=== PATIENT | female | born 1935 | race Caucasian/White ===

== ENCOUNTER 2017-10-19 17:32 | Inpatient (IN) | payer MEDICARE ==
[~2017-10-19] VITALS: Ht 165.1 cm; Wt 106.1 kg
[2017-10-19 17:37] VITALS: BP 145/89
[2017-10-19] MEDS ORDERED: ASPIR 8181 MG PO (17:44)
[2017-10-19] MEDS ORDERED: PREDNISONE 10 M10 MG PO (17:44)
[2017-10-19] MEDS ORDERED: MOBIC7.5 MG PO (17:44)
[2017-10-19] MEDS ORDERED: ANTIVERT25 MG PO (17:44)
[2017-10-19] MEDS ORDERED: MULTI COMPLETE1 EAC1 PO (17:45)
[2017-10-19] MEDS ORDERED: TRAZODONE HCL50 MG PO (17:45)
[2017-10-19] MEDS ORDERED: VENTOLIN HFA 1818 GM INH (17:45)
[2017-10-19] MEDS ORDERED: ZYRTEC 10 MG TA10 MG PO (17:45)
[2017-10-19] MEDS ORDERED: HYDROPHOR454 GM TOP (17:46)
[2017-10-19] MEDS ORDERED: LASIX 40 MG TAB40 M2 PO (17:46)
[2017-10-19] MEDS ORDERED: FLONASE 0.05%50 MCG NASAL (17:46)
[2017-10-19] MEDS ORDERED: NEURONTIN 300300 M1 PO (17:46)
[2017-10-19] MEDS ORDERED: SYNTHROID150 MCG PO (17:47)
[2017-10-19] MEDS ORDERED: OLOPATADINE HC2.5 ML OPHTHALMIC (17:47)
[2017-10-19] MEDS ORDERED: ZOCOR40 MG PO (17:47)
[2017-10-19] MEDS ORDERED: ALLOPURINOL 10100 M1 PO (17:48)
[2017-10-19] MEDS ORDERED: RED YEAST RICE600 MG PO (17:48)
[2017-10-19] MEDS ORDERED: FLOVENT HFA 4444 MCG INH (17:48)
[2017-10-19] MEDS ORDERED: PERCOCET PO (17:48)
[2017-10-19] MEDS ORDERED: ARIMIDEX1 MG PO (17:49)
[2017-10-19 18:04] LABS: ABSOLUTE BASOPHILS 0.1 thou/uL (0.0-0.2); ABSOLUTE EOSINOPHILS 0.1 thou/uL (0.0-0.7); ABSOLUTE LYMPHOCYTES 1.5 thou/uL (0.8-5.3); ABSOLUTE MONOCYTES 0.9 thou/uL (0.0-1.2); ABSOLUTE NEUTROPHILS 6.8 thou/uL (1.6-8.1); BASOPHILS 0.6 %; EOSINOPHILS 1.1 %; HEMATOCRIT 39.1 % (37.0-47.0); MCH 31.8 pg (26.0-34.0); MCHC 33.4 g/dL (28.0-37.0); MCV 95.2 fL (80.0-100.0); MONOCYTES 9.3 %; MPV 8.8 fl. (7.2-11.1); NUCLEATED RBCS 0 /100WBC; PLATELET COUNT* 176 thou/uL (150-400); RBC 4.11 mil/uL (4.20-5.00); RDW-CV 15.1 % (10.5-14.5); WBC 9.3 thou/uL (4.0-11.0)
[2017-10-19 18:13] LABS: ANION GAP 8 mmol/L (7-16); BUN 32 mg/dL (7-18); CALCIUM 8.5 mg/dL (8.5-10.1); CHLORIDE 104 mmol/L (98-107); CO2 30 mmol/L (21-32); GLUCOSE 113 mg/dL (70-99); POTASSIUM 3.9 mmol/L (3.5-5.1); SODIUM 142 mmol/L (136-145)
[2017-10-19 18:16] LABS: APTT 25.1 Seconds (25.0-31.3); INR 1.1; PROTIME 10.6 Seconds (9.20-11.50)
[2017-10-19 18:24] LABS: ALBUMIN 3.6 g/dL (3.4-5.0); ALKALINE PHOSPHATASE 80 U/L (46-116); NT-PRO BRAIN NAT PEPTIDE 2358 pg/mL (<300); SGOT 28 U/L (15-37); SGPT 59 U/L (30-65); TOTAL BILIRUBIN 0.3 mg/dL (<0.1-1.0); TOTAL PROTEIN 6.8 g/dL (6.4-8.2); TROPONIN-I LEVEL <0.06 ng/mL (<0.06)
[2017-10-19 20:21] VITALS: BP 134/72
[2017-10-19 20:30] VITALS: BP 146/92
[2017-10-20] VITALS (16 sets, daily range): BP systolic 100–150; BP diastolic 56–93
[2017-10-20 05:14] LABS: ABSOLUTE EOSINOPHILS 0.1 thou/uL (0.0-0.7); ABSOLUTE LYMPHOCYTES 1.3 thou/uL (0.8-5.3); ABSOLUTE MONOCYTES 0.5 thou/uL (0.0-1.2); ABSOLUTE NEUTROPHILS 4.6 thou/uL (1.6-8.1); BASOPHILS 0.4 %; EOSINOPHILS 0.8 %; HEMATOCRIT 34.5 % (37.0-47.0); HEMOGLOBIN 11.8 gm/dL (12.0-15.0); LYMPHOCYTES 20.1 %; MCH 32.1 pg (26.0-34.0); MCV 94.3 fL (80.0-100.0); MONOCYTES 7.7 %; MPV 9.1 fl. (7.2-11.1); NUCLEATED RBCS 0 /100WBC; PLATELET COUNT* 158 thou/uL (150-400); RBC 3.66 mil/uL (4.20-5.00); RDW-CV 15.4 % (10.5-14.5); WBC 6.5 thou/uL (4.0-11.0)
[2017-10-20 05:37] LABS: CALCIUM 7.8 mg/dL (8.5-10.1); CREATININE 0.9 mg/dL (0.6-1.3)
--- NOTE | 2017-10-20 15:25 | EKG ---
[place] [address] ELECTROCARDIOGRAM REPORT Name: MIKE BEST Room: [address] ADM IN .R.#: [id number] Admission: 10/19/17 Attend Phys: Donny Tripathi MD Discharge: Date of : 39 Report #: [id number] THIS REPORT FOR: //name// [facility] ED Test Date: 2017-10-19 Test Time: 17:47:28 Pat Name: MIKE BEST Department: Room: [facility] Gender: F Diesel Roller Operator: UNKNOWN : 1935 Requested By: yKlie Deal Order Number: [id number] MD: Josue Mccormick Measurements Intervals [place] Rate: 133 P: [place]: QRS: 14 QRSD: 88 T: -39 QT: 335 QTc: 499 Interpretive Statements Atrial fibrillation Repolarization abnormality, prob rate related Borderline prolonged QT interval No previous ECG available for comparison Electronically Signed On 10-20-2017 15:24:49 FARM MANAGEMENT AGENT by Josue Mccormick [email or web address] <ELECTRONICALLY SIGNED> By: Josue Mccormick MD, [facility] 10/20/17 1524 1747 174 Josue Mccormick MD, [facility] /EPI
--- NOTE | 2017-10-20 16:26 | TEE ---
[place] [address] TRANSESOPHAGEAL ECHOCARDIOGRAM Name: MIKE BEST Room: [address] IN [facility]#: [id number] Admission: 10/19/17 Attend Phys: Donny Tripathi, Discharge: Date of : 39 Date of Service: 10/20/17 1625 Report #: [id number] THIS REPORT FOR: //name// APPROVED REPORT Study performed: 10/20/2017 14:43:53 EXAM: Transesophageal Echocardiogram Patient Location: In-Patient Room #: [facility] Status: routine BSA: 2.13 HR: 118 bpm BP: 123/87 mmHg Rhythm: Atrial Fibrillation Other Information Study Quality: Good Indications Atrial Fibrillation Procedure After obtaining informed consent, patient underwent transesophageal echo in the [employer]. Type of Sedation : Conscious Sedation Sedation was administered by Luz Rainey. Sedation start time: 1542 Case end Time: 1550 Sedation was achieved intravenously with: Versed (4) Fentanyl (100) Transesophageal probe was inserted and advanced into esophagus without difficulty by Josue Mccormick MD, [facility]. The AMARIS was performed without complications. Synchronized Cardioversion acheived with 200 Joules after 1 attempt(s). Rhythm following Synchronized Cardioversion: Normal Sinus Rhythm Throughout the procedure, the blood pressure, pulse oximetry, cardiac rhythm, and rate were monitored. The patient tolerated the procedure without adverse effects. Recovery from conscious sedation was uneventful and vital signs were stable. Left Ventricle The left ventricle is normal size. There is global hypokinesis of the left ventricle. There is normal left ventricular wall thickness. [address] [address] TRANSESOPHAGEAL ECHOCARDIOGRAM Name: MIKE BEST Room: [address] IN [facility]#: [id number] Admission: 10/19/17 Attend Phys: Donny Tripathi, Discharge: Date of : 39 Date of Service: 10/20/17 1625 Report #: [id number] There is no ventricular septal defect visualized. Left ventricular systolic function is mildly decreased. No left ventricle thrombus noted on this study. LVEF is 45-50%. Right Ventricle The right ventricle is normal size. The right ventricular systolic function is normal. Atria Left atrium is mildly dilated. The right atrium size is normal. There is a mild amount of smoke, the left atrial appendage is free of thrombus Aortic Valve The aortic valve is normal in structure. No aortic regurgitation is present. Mitral Valve The mitral valve is normal in structure. Mild mitral regurgitation. Tricuspid Valve The tricuspid valve is normal in structure. Mild tricuspid regurgitation. Great Vessels The aortic root is normal in size. <Conclusion> LVEF is 45-50%. There is global hypokinesis of the left ventricle. Left atrium is mildly dilated. No thrombus <ELECTRONICALLY SIGNED> By: Josue Mccormick MD, FACC 10/20/17 1625 1625 162 Josue Mccormick MD, FACC /INF
[2017-10-21] VITALS (7 sets, daily range): BP systolic 113–145; BP diastolic 52–84
[2017-10-21 05:11] LABS: ABSOLUTE EOSINOPHILS 0.2 thou/uL (0.0-0.7); ABSOLUTE LYMPHOCYTES 1.4 thou/uL (0.8-5.3); ABSOLUTE MONOCYTES 0.5 thou/uL (0.0-1.2); BASOPHILS 0.6 %; EOSINOPHILS 3.3 %; HEMATOCRIT 33.6 % (37.0-47.0); HEMOGLOBIN 11.4 gm/dL (12.0-15.0); LYMPHOCYTES 27.7 %; MCHC 33.8 g/dL (28.0-37.0); MCV 94.5 fL (80.0-100.0); MONOCYTES 10.3 %; MPV 8.9 fl. (7.2-11.1); NUCLEATED RBCS 0 /100WBC; PLATELET COUNT* 147 thou/uL (150-400); POLYS 58.1 %; RBC 3.55 mil/uL (4.20-5.00); WBC 5.1 thou/uL (4.0-11.0)
[2017-10-21 05:44] LABS: ALBUMIN 3.1 g/dL (3.4-5.0); CALCIUM 7.8 mg/dL (8.5-10.1); CREATININE 0.8 mg/dL (0.6-1.3); POTASSIUM 3.7 mmol/L (3.5-5.1); TOTAL BILIRUBIN 0.4 mg/dL (<0.1-1.0); TOTAL PROTEIN 5.9 g/dL (6.4-8.2)
--- NOTE | 2017-10-21 14:36 | EKG ---
[place] [address] ELECTROCARDIOGRAM REPORT Name: MIKE BEST Room: [address] ADM IN M.R.#: [id number] Admission: 10/19/17 Attend Phys: Donny Tripathi MD Discharge: Date of : 39 Report #: [id number] THIS REPORT FOR: //name// [facility] Test Date: 2017-10-20 Test Time: 15:16:17 Pat Name: MIKE BEST Department: Room: [address] Gender: F Digital Forensic Examiner: 27 : 1935 Requested By: Josue Mccormick Order Number: [id number] Reading MD: Josue Mccormick Measurements Intervals [place] Rate: 99 P: 63 MO: 221 QRS: 6 QRSD: 90 T: -2 QT: 363 QTc: 466 Interpretive Statements Sinus tachycardia Multiple ventricular premature complexes Borderline prolonged [place] interval Borderline T abnormalities, inferior leads Compared to ECG 10/19/2017 17:47:28 Ventricular premature complex(es) now present T-wave abnormality now present Atrial fibrillation no longer present Early repolarization no longer present Electronically Signed On 10-21-2017 14:36:03 HAM SAWYER by Josue Mccormick [email or web address] <ELECTRONICALLY SIGNED> By: Josue Mccormick MD, FACC 10/21/17 1436 1516 1516 Josue Mccormick MD, FAC /EPI
--- NOTE | 2017-10-21 14:39 | EKG ---
[place] [address] ELECTROCARDIOGRAM REPORT Name: MIKE BEST Room: [address] ADM IN M.R.#: [id number] Admission: 10/19/17 Attend Phys: Donny Tripathi MD Discharge: Date of : 39 Report #: [id number] THIS REPORT FOR: //name// [facility] Test Date: 2017-10-21 Test Time: 08:23:01 Pat Name: MIKE BEST Department: Room: [address] Gender: F Service Desk Analyst: 27 : 1935 Requested By: Josue Mccormick Order Number: [id number] Reading MD: Josue Mccormick Measurements Intervals [place] Rate: 60 P: 23 SD: 252 QRS: 12 QRSD: 100 T: 6 QT: 484 QTc: 484 Interpretive Statements Sinus rhythm Prolonged SD interval Compared to ECG 10/19/2017 17:47:28 First degree AV block now present Atrial fibrillation no longer present Early repolarization no longer present Electronically Signed On 10-21-2017 14:39:16 EXTRUSION DIE COORDINATOR by Josue Mccormick [email or web address] <ELECTRONICALLY SIGNED> By: Josue Mccormick MD, [facility] 10/21/17 1439 0823 0823 Josue Mccormick MD, [facility] /EPI
[2017-10-21] MEDS ORDERED: XARELTO10 MG PO (16:55)
[2017-10-21] MEDS ORDERED: FLECAINIDE ACET50 M1 PO (16:56)
[2017-10-21] MEDS ORDERED: POTASSIUM20 PO (17:15)
--- NOTE | 2017-10-24 09:45 | CON ---
[address] [address] CONSULTATION Name: MIKE BEST Room: [address] IN M.R.#: [id number] Admission: 10/19/17 Attend Phys: Donny Tripathi MD Discharge: 10/21/17 Date of : 39 Report #: [id number] THIS REPORT FOR: //name// CC: Donny Tripathi [facility] physician/PCP DATE OF SERVICE: 10/20/2017 INPATIENT CONSULTATION REQUESTING PHYSICIAN: Donny Tripathi M.D. PRIMARY CARE PHYSICIAN: No family physician. CHIEF COMPLAINT: Shortness of breath, atrial fibrillation. HISTORY OF PRESENT ILLNESS: The patient is an 82-year-old female who was at radiation therapy locally for treatment of her left-sided breast cancer and she developed shortness of breath, had an irregular pulse and was sent to a clinic in [place] and then she was found to be in atrial fibrillation and transferred here. She presents with heart rates in the 120s, with dyspnea associated. With medications to slow down her atrial fibrillation, her symptoms of shortness of breath have improved. She presented also with some mild heart failure and was given diuretics and has improved. She has minimal symptoms of palpitations. The onset of these symptoms has been recent within the last 48-72 hours. She denies exertional chest pain or pressure, but has mild chronic dyspnea with exertion. She attributed this to her radiation therapy, but otherwise was not known. She has no documented history of heart disease. She does not have high blood pressure. She has no history of stroke or TIA. Denies any neuro symptoms, slurred speech, numbness or weakness. PAST MEDICAL HISTORY: Significant for breast cancer, status post mastectomy with reconstruction at [facility] and radiation therapy. She has completed 6 doses and has not been on chemotherapy, and it is not known as to whether or not this will be required. Otherwise, no chronic medical problems. There is a questionable history of a TIA; details of this are not available and it is very remote, several years ago. SOCIAL HISTORY: She is a former smoker, quit 30 years ago. PAST SURGICAL HISTORY: The aforementioned breast cancer surgery[place] [address] CONSULTATION Name: MIKE BEST Room: [address]#: [id number] Admission: 10/19/17 Attend Phys: Donny Tripathi MD Discharge: 10/21/17 Date of : 39 Report #: [id number] cholecystectomy, appendectomy, 4 hernia surgeries, bilateral knee replacement and shoulder surgeries. REVIEW OF SYSTEMS: CENTRAL NERVOUS SYSTEM: No recent seizures or paralysis. No numbness, weakness, slurred speech or visual changes. No extremity numbness. GENERAL: No weight loss or fevers. RESPIRATORY: No cough or sputum production. Positive dyspnea. No asthma. CARDIOVASCULAR: Positive dyspnea with exertion. No orthopnea, no PND. Positive childhood murmur. Positive edema. ENDOCRINE: No diabetes. Positive thyroid disease. GASTROINTESTINAL: No vomiting, vomiting blood, ulcers, jaundice or hepatitis. MUSCULOSKELETAL: Denies recent fall. Positive arthritis. GENITOURINARY: No dysuria or hematuria. ALLERGIES: No seasonal allergies. Positive medical allergies. No aspirin or contrast dye allergies. PSYCHIATRIC: Positive depression. SKIN: No rashes. EYES: She does use reading glasses. EARS, NOSE, THROAT AND MOUTH: No decreased hearing or bleeding from nose. Positive dentures. HOME MEDICATIONS: Include aspirin 81 mg daily, Zyrtec p.r.n., Lasix 40 mg daily, gabapentin 300 mg t.i.d., Synthroid 150 mcg daily, meclizine p.r.n., meloxicam p.r.n., oxycodone p.r.n., prednisone 10 mg daily, Arimidex 1 mg daily and allopurinol p.r.n. PHYSICAL EXAMINATION: VITAL SIGNS: Blood pressure is 132/83; heart rate of 88, in atrial fibrillation; temperature is 37.1 and respiratory rate is 17. GENERAL: This is a pleasant, moderately obese elderly female. She is alert, oriented, in no apparent distress. NECK: Supple. No jugular venous distention. CARDIOVASCULAR EXAMINATION: Irregular. I cannot hear a murmur. LUNGS: Clear to auscultation, diminished breath sounds. ABDOMEN: Soft, nontender and nondistended. EXTREMITIES: No peripheral edema. NEUROLOGIC: No focal deficits. SKIN: Warm and dry. LABORATORY DATA: Electrocardiogram demonstrates atrial fibrillation with a rate of 133 beats per minute. No significant ST-segment abnormalities. Hemoglobin is 11.8, white blood cell count is 6.5 and platelet counts are 158,000. Sodium 144, potassium 4.0, chloride 108, CO2 is 28, BUN is 24 and creatinine is 0.9. IMAGING: CTA of the head, no evidence of intracranial [place] [address] CONSULTATION Name: MIKE BEST Room: [facility] IN M.R.#: [id number] Admission: 10/19/17 Attend Phys: Donny Tripathi MD Discharge: 10/21/17 Date of : 39 Report #: [id number] chest demonstrated no pulmonary emboli. IMPRESSION: 1. Paroxysmal atrial fibrillation. She is quite symptomatic. We discussed different treatment options and given the chronicity of her presentation, I think she would benefit from a AMARIS-guided cardioversion. I would like to start her on flecainide and Pradaxa in anticipation of the procedure. We will assess LV function. 2. Shortness of breath. This could be related to mild congestive heart failure which has responded to diuretics, but she also has some coronary artery disease, risk factors including age, hyperlipidemia and we will evaluate her with an outpatient stress test. 3. Acute diastolic heart failure. This has responded nicely to diuretic therapy. 4. Breast cancer. I do not see any contraindication to her continuing with radiation therapy. <ELECTRONICALLY SIGNED> By: Josue Mccormick MD, FACC 10/24/17 0945 1015 [id number] Mccormick MD, FACC /nt
--- NOTE | 2017-10-24 09:46 | CARD ---
[address] [address] CARDIAC CATH REPORT Name: MIKE BEST Room: [address] IN .R.#: [id number] Admission: 10/19/17 Attend Phys: Donny Tripathi MD Discharge: 10/21/17 Date of : 39 Report #: [id number] THIS REPORT FOR: //name// CC: Donny Tripathi [facility] physician/PCP DATE OF SERVICE: 10/20/2017 PROCEDURES PERFORMED: Transesophageal echocardiogram, DC cardioversion. INDICATION: Atrial fibrillation, shortness of breath. CONSENT: The risks and benefits of the procedure described to patient in lay terms. DESCRIPTION OF PROCEDURE: The patient was sedated with IV fentanyl and Versed. Please see record for dosing. Heart rate, oxygenation, blood pressure and respiratory rate were monitored per protocol. After the informed consent, a lubricated transesophageal probe was advanced without significant resistance. Transesophageal echocardiographic images were obtained. The echo probe was removed, which was nonbloody. The sedation was reassessed and the patient was cardioverted with 200 joules, biphasic, from atrial fibrillation to sinus rhythm with frequent PACs with heart rate in the 70s-90s. IMPRESSION: 1. Successful DC cardioversion. 2. Atrial fibrillation. <ELECTRONICALLY SIGNED> By: Josue Mccormick MD, [facility] 10/24/17 0946 1535 2214Marjos Mccormick MD, URIAH /nt
== END 2017-10-21 18:00 | disposition home or self-care (01) | DRG 177 ==
LOC: M.ERS 17:32 → M.2W 18:52 → M.TBA-ER 18:52 → M.2W 21:13
PROVIDERS: Personal Emergency Response Attendant; ADMIT Internal Medicine
PROC: 5A2204Z Restoration of Cardiac Rhythm, Single (ICD-10-PCS; principal; 2017-10-20)
PROC: B24BZZ4 Ultrasonography of Heart with Aorta, Transesophageal (ICD-10-PCS; principal; 2017-10-20)
DX: J15.6 Pneumonia due to other Gram-negative bacteria (principal); I50.31 Acute diastolic (congestive) heart failure; I48.0 Paroxysmal atrial fibrillation; C50.919 Malignant neoplasm of unspecified site of unspecified female breast; Z96.653 Presence of artificial knee joint, bilateral; I25.10 Atherosclerotic heart disease of native coronary artery without angina pectoris; K59.00 Constipation, unspecified; M19.90 Unspecified osteoarthritis, unspecified site; M10.9 Gout, unspecified; Z88.8 Allergy status to other drugs, medicaments and biological substances; Z88.6 Allergy status to analgesic agent; Z91.040 Latex allergy status; Z90.12 Acquired absence of left breast and nipple; Z87.891 Personal history of nicotine dependence; Z90.49 Acquired absence of other specified parts of digestive tract

== ENCOUNTER 2017-10-23 05:38 | Emergency (ER) | payer MEDICARE ==
[~2017-10-23] VITALS: Ht 165.1 cm; Wt 115.7 kg
[~2017-10-23 05:38] MED LIST: ALLOPURINOL 10100 M1 PO; ANTIVERT25 MG PO; ARIMIDEX1 MG PO; ASPIR 8181 MG PO; FLECAINIDE ACET50 M1 PO; FLONASE 0.05%50 MCG NASAL; FLOVENT HFA 4444 MCG INH; HYDROPHOR454 GM TOP; LASIX 40 MG TAB40 M2 PO; MOBIC7.5 MG PO; MULTI COMPLETE1 EAC1 PO; NEURONTIN 300300 M1 PO; OLOPATADINE HC2.5 ML OPHTHALMIC; PERCOCET PO; POTASSIUM20 PO; PREDNISONE 10 M10 MG PO; RED YEAST RICE600 MG PO; SYNTHROID150 MCG PO; TRAZODONE HCL50 MG PO; VENTOLIN HFA 1818 GM INH; XARELTO10 MG PO; ZOCOR40 MG PO; ZYRTEC 10 MG TA10 MG PO
[2017-10-23 05:58] LABS: ABSOLUTE EOSINOPHILS 0.2 thou/uL (0.0-0.7); ABSOLUTE LYMPHOCYTES 1.3 thou/uL (0.8-5.3); ABSOLUTE MONOCYTES 0.5 thou/uL (0.0-1.2); ABSOLUTE NEUTROPHILS 4.1 thou/uL (1.6-8.1); BASOPHILS 0.8 %; HEMATOCRIT 38.4 % (37.0-47.0); HEMOGLOBIN 12.6 gm/dL (12.0-15.0); LYMPHOCYTES 21.1 %; MCH 31.6 pg (26.0-34.0); MCHC 32.8 g/dL (28.0-37.0); MCV 96.4 fL (80.0-100.0); MONOCYTES 8.4 %; MPV 8.5 fl. (7.2-11.1); NUCLEATED RBCS 0 /100WBC; PLATELET COUNT* 168 thou/uL (150-400); POLYS 66.7 %; RBC 3.99 mil/uL (4.20-5.00); RDW-CV 15.4 % (10.5-14.5); WBC 6.1 thou/uL (4.0-11.0)
[2017-10-23 06:09] LABS: ANION GAP 6 mmol/L (7-16); BUN 27 mg/dL (7-18); CHLORIDE 104 mmol/L (98-107); CO2 33 mmol/L (21-32); CREATININE 0.8 mg/dL (0.6-1.3); GLUCOSE 100 mg/dL (70-99); POTASSIUM 4.5 mmol/L (3.5-5.1); SODIUM 143 mmol/L (136-145)
[2017-10-23 06:12] LABS: CALCIUM 9.8 mg/dL (8.5-10.1); INR 1.2; PROTIME 11.3 Seconds (9.20-11.50)
[2017-10-23 06:25] LABS: ALBUMIN 3.6 g/dL (3.4-5.0); ALKALINE PHOSPHATASE 74 U/L (46-116); NT-PRO BRAIN NAT PEPTIDE 1249 pg/mL (<300); SGOT 15 U/L (15-37); SGPT 32 U/L (30-65); TOTAL BILIRUBIN 0.4 mg/dL (<0.1-1.0); TOTAL PROTEIN 6.9 g/dL (6.4-8.2); TROPONIN-I LEVEL <0.06 ng/mL (<0.06)
[2017-10-23 06:38] VITALS: BP 156/96
--- NOTE | 2017-10-23 14:31 | EKG ---
[place] [address] ELECTROCARDIOGRAM REPORT Name: MIKE BEST Room: [facility]#: [id number] Admission: 10/23/17 Attend Phys: Discharge: 10/23/17 Date of : 39 Report #: [id number] THIS REPORT FOR: //name// [facility] ED Test Date: 2017-10-23 Test Time: 05:51:02 Pat Name: MIKE BEST Department: Room: Gender: F Travel Rn Or: BLANK : 1935 Requested By: Ava Guzman Order Number: [id number] MD: Andrew Hyatt Measurements Intervals [place] Rate: 71 P: 12 ID: 271 QRS: -1 QRSD: 104 T: 5 QT: 429 QTc: 467 Interpretive Statements Sinus rhythm Prolonged ID interval consider Inferior infarct, old Compared to ECG 10/21/2017 08:23:01 no change Electronically Signed On 10-23-2017 14:31:19 STRIPE MARKER by Andrew Hyatt [email or web address] <ELECTRONICALLY SIGNED> By: Andrew Hyatt MD, [facility] 10/23/17 1431 0551 0551 Andrew Hyatt MD, FACC /EPI
== END 2017-10-23 06:38 | disposition home or self-care (01) ==
LOC: M.ERS 05:38
PROVIDERS: Emergency Medicine
DX: R06.00 Dyspnea, unspecified (principal); K59.00 Constipation, unspecified; M19.90 Unspecified osteoarthritis, unspecified site; I47.1 Supraventricular tachycardia; F10.99 Alcohol use, unspecified with unspecified alcohol-induced disorder; Z87.442 Personal history of urinary calculi; Z96.652 Presence of left artificial knee joint; Z98.890 Other specified postprocedural states; Z88.6 Allergy status to analgesic agent; Z88.5 Allergy status to narcotic agent; Z91.040 Latex allergy status; Z91.048 Other nonmedicinal substance allergy status

== ENCOUNTER 2017-11-06 12:20 | Emergency (ER) | payer MEDICARE ==
[~2017-11-06] VITALS: Ht 165.1 cm; Wt 117.5 kg
[2017-11-06] MEDS ORDERED: CARDIZEM CD180 MG PO (12:34)
[2017-11-06 13:26] LABS: ABSOLUTE BASOPHILS 0.1 thou/uL (0.0-0.2); ABSOLUTE EOSINOPHILS 0.2 thou/uL (0.0-0.7); ABSOLUTE LYMPHOCYTES 1.1 thou/uL (0.8-5.3); ABSOLUTE MONOCYTES 0.5 thou/uL (0.0-1.2); ABSOLUTE NEUTROPHILS 5.3 thou/uL (1.6-8.1); BASOPHILS 0.7 %; EOSINOPHILS 3.5 %; HEMATOCRIT 38.7 % (37.0-47.0); LYMPHOCYTES 15.1 %; MCH 31.2 pg (26.0-34.0); MCHC 33.7 g/dL (28.0-37.0); MCV 92.7 fL (80.0-100.0); MONOCYTES 7.5 %; MPV 8.4 fl. (7.2-11.1); NUCLEATED RBCS 0 /100WBC; PLATELET COUNT* 174 thou/uL (150-400); POLYS 73.2 %; RBC 4.17 mil/uL (4.20-5.00); WBC 7.2 thou/uL (4.0-11.0)
[2017-11-06 13:35] LABS: ANION GAP 11 mmol/L (7-16); BUN 15 mg/dL (7-18); CALCIUM 8.9 mg/dL (8.5-10.1); CHLORIDE 103 mmol/L (98-107); CO2 30 mmol/L (21-32); CREATININE 0.9 mg/dL (0.6-1.3); GLUCOSE 93 mg/dL (70-99); POTASSIUM 3.6 mmol/L (3.5-5.1); SODIUM 144 mmol/L (136-145)
[2017-11-06 13:46] LABS: ALBUMIN 3.7 g/dL (3.4-5.0); ALKALINE PHOSPHATASE 83 U/L (46-116); NT-PRO BRAIN NAT PEPTIDE 1160 pg/mL (<300); SGOT 26 U/L (15-37); SGPT 23 U/L (30-65); TOTAL BILIRUBIN 0.4 mg/dL (<0.1-1.0); TOTAL PROTEIN 7.1 g/dL (6.4-8.2); TROPONIN-I LEVEL <0.06 ng/mL (<0.06)
[2017-11-06 14:14] LABS: APTT 38.3 Seconds (25.0-31.3); INR 1.2; PROTIME 11.3 Seconds (9.20-11.50)
[2017-11-06] MEDS ORDERED: MUCUS RELIEF600 M1 PO (14:35)
[2017-11-06] MEDS ORDERED: CHERATUSSIN AC118 ML PO (14:35)
[2017-11-06] MEDS ORDERED: AUGMENTIN 875-1 EACH PO (14:35)
--- NOTE | 2017-11-06 14:39 | EKG ---
[place] [address] ELECTROCARDIOGRAM REPORT Name: MIKE BEST Room: [facility]#: [id number] Admission: 11/06/17 Attend Phys: Discharge: Date of : 39 Report #: [id number] THIS REPORT FOR: //name// [facility] ED Test Date: 2017-11-06 Test Time: 13:26:56 Pat Name: MIKE BEST Department: Room: Gender: F Aviation Maintenance Technician: HALINA : 1935 Requested By: Renetta Knox Order Number: [id number] MD: Andrew Hyatt Measurements Intervals [place] Rate: 104 P: [place]: QRS: 6 QRSD: 85 T: 43 QT: 477 QTc: 628 Interpretive Statements Atrial fibrillation Nonspecific T abnormalities, lateral leads Prolonged QT interval Baseline wander in lead(s) V5 Compared to ECG 10/23/2017 05:51:02 Prolonged QT interval now present Sinus rhythm no longer present Electronically Signed On 11-06-2017 14:39:27 CORK MOLDER by Andrew Hyatt [email or web address] <ELECTRONICALLY SIGNED> By: Andrew Hyatt MD, [facility] 11/06/17 1439 1326 1326 Andrew Hyatt MD, [facility] /EPI
[2017-11-06 15:17] VITALS: BP 123/81
== END 2017-11-06 15:19 | disposition home or self-care (01) ==
LOC: M.ERS 12:20
PROVIDERS: Nurse Practitioner Family
DX: J20.9 Acute bronchitis, unspecified (principal); M10.9 Gout, unspecified; M19.90 Unspecified osteoarthritis, unspecified site; Z85.3 Personal history of malignant neoplasm of breast; Z87.442 Personal history of urinary calculi; Z90.89 Acquired absence of other organs; Z96.653 Presence of artificial knee joint, bilateral; Z88.6 Allergy status to analgesic agent; Z88.5 Allergy status to narcotic agent; Z91.040 Latex allergy status; Z88.8 Allergy status to other drugs, medicaments and biological substances

== ENCOUNTER → 2017-12-04 | Outpatient (CLI) | payer MEDICARE ==
[~2017-12-04] MED LIST changes: +AUGMENTIN 875-1 EACH PO; +CARDIZEM CD180 MG PO; +CHERATUSSIN AC118 ML PO; +DIGOXIN125 MCG PO; +MUCUS RELIEF600 M1 PO; +PATANOL5 ML OPHTHALMIC; +VITAMIN D3400 UNIT PO; +XANAX 1 MG TABLE1 MG PO
[2017-12-04 09:14] LABS: CALCIUM 10.3 mg/dL (8.5-10.1)
== END ==
LOC: M.LAB 08:49
PROVIDERS: Internal Medicine Cardiovascular Disease
DX: I42.8 Other cardiomyopathies (principal)

== ENCOUNTER → 2018-03-27 | Outpatient (CLI) | payer MEDICARE ==
[2018-03-27 12:49] LABS: CALCIUM 11.1 mg/dL (8.5-10.1); CREATININE 1.1 mg/dL (0.6-1.3); POTASSIUM 4.1 mmol/L (3.5-5.1)
== END ==
LOC: M.LAB 11:56
PROVIDERS: Internal Medicine Cardiovascular Disease
DX: I48.1 Persistent atrial fibrillation (principal); I42.8 Other cardiomyopathies

== ENCOUNTER 2018-05-07 20:16 | Emergency (ER) | payer MEDICARE ==
[~2018-05-07] VITALS: Ht 165.1 cm; Wt 106.6 kg
[~2018-05-07 20:16] MED LIST changes: -DIGOXIN125 MCG PO; -PATANOL5 ML OPHTHALMIC; -VITAMIN D3400 UNIT PO; -XANAX 1 MG TABLE1 MG PO
[2018-05-07] MEDS ORDERED: VITAMIN D3400 UNIT PO (20:26)
[2018-05-07] MEDS ORDERED: DIGOXIN125 MCG PO (20:27)
[2018-05-07] MEDS ORDERED: PATANOL5 ML OPHTHALMIC (20:28)
[2018-05-07 20:43] LABS: ABSOLUTE BASOPHILS 0.1 thou/uL (0.0-0.2); ABSOLUTE EOSINOPHILS 0.2 thou/uL (0.0-0.7); ABSOLUTE LYMPHOCYTES 1.9 thou/uL (0.8-5.3); ABSOLUTE MONOCYTES 0.7 thou/uL (0.0-1.2); ABSOLUTE NEUTROPHILS 6.8 thou/uL (1.6-8.1); EOSINOPHILS 1.9 %; HEMATOCRIT 38.4 % (37.0-47.0); HEMOGLOBIN 12.9 gm/dL (12.0-15.0); LYMPHOCYTES 19.3 %; MCHC 33.5 g/dL (28.0-37.0); MCV 95.5 fL (80.0-100.0); MONOCYTES 7.1 %; MPV 8.6 fl. (7.2-11.1); NUCLEATED RBCS 0 /100WBC; PLATELET COUNT* 212 thou/uL (150-400); POLYS 70.7 %; RBC 4.02 mil/uL (4.20-5.00); RDW-CV 14.8 % (10.5-14.5); WBC 9.7 thou/uL (4.0-11.0)
[2018-05-07 20:49] LABS: ANION GAP 7 mmol/L (7-16); BUN 21 mg/dL (7-18); CALCIUM 10.4 mg/dL (8.5-10.1); CHLORIDE 101 mmol/L (98-107); CO2 30 mmol/L (21-32); CREATININE 1.2 mg/dL (0.6-1.3); GLUCOSE 115 mg/dL (70-99); SODIUM 138 mmol/L (136-145)
[2018-05-07 20:51] LABS: APTT 50.4 Seconds (25.0-31.3); INR 1.3; PROTIME 13.1 Seconds (9.20-11.50)
[2018-05-07 21:05] LABS: ALBUMIN 3.4 g/dL (3.4-5.0); ALKALINE PHOSPHATASE 91 U/L (46-116); LIPASE 86 U/L (73-393); MAGNESIUM 1.5 mg/dL (1.8-2.4); NT-PRO BRAIN NAT PEPTIDE 607 pg/mL (<300); SGOT 18 U/L (15-37); SGPT 18 U/L (30-65); TOTAL BILIRUBIN 0.2 mg/dL (<0.1-1.0); TOTAL PROTEIN 7.4 g/dL (6.4-8.2); TROPONIN-I LEVEL <0.06 ng/mL (<0.06)
[2018-05-07] MEDS ORDERED: XANAX 1 MG TABLE1 MG PO (21:16)
[2018-05-07 21:35] VITALS: BP 126/69
--- NOTE | 2018-05-09 13:32 | EKG ---
[place] [address] ELECTROCARDIOGRAM REPORT Name: MIKE BEST Room: [facility]#: [id number] Admission: 05/07/18 Attend Phys: Discharge: 05/07/18 Date of : 39 Report #: [id number] THIS REPORT FOR: //name// [facility] ED Test Date: 2018-05-07 Test Time: 20:21:02 Pat Name: MIKE BEST Department: Room: Gender: F Preparation Operator: : 1935 Requested By: Venancio Garcia Order Number: [id number] MD: Dandre Darden Measurements Intervals [place] Rate: 96 P: [place]: QRS: 26 QRSD: 92 T: 202 QT: 334 QTc: 422 Interpretive Statements Atrial fibrillation Repol abnrm, severe global ischemia (LM/MVD) Compared to ECG 11/06/2017 13:26:56 Early repolarization now present Possible ischemia now present T-wave abnormality no longer present Prolonged QT interval no longer present Electronically Signed On 05-09-2018 13:31:50 CDT by Dandre Darden [email or web address] <ELECTRONICALLY SIGNED> By: Dandre Darden MD, FACC 05/09/18 1331 20 20 Dandre Darden MD, [facility] /EPI
== END 2018-05-07 21:35 | disposition home or self-care (01) ==
LOC: M.ERS 20:16
PROVIDERS: Family Medicine
DX: F41.9 Anxiety disorder, unspecified (principal); R07.89 Other chest pain; M10.9 Gout, unspecified; M19.90 Unspecified osteoarthritis, unspecified site; Z87.442 Personal history of urinary calculi; Z85.3 Personal history of malignant neoplasm of breast; Z90.49 Acquired absence of other specified parts of digestive tract; Z96.653 Presence of artificial knee joint, bilateral; Z88.5 Allergy status to narcotic agent; Z88.6 Allergy status to analgesic agent; Z88.8 Allergy status to other drugs, medicaments and biological substances; Z91.040 Latex allergy status

== ENCOUNTER → 2018-08-20 | Outpatient (CLI) | payer MEDICARE ==
[~2018-08-20] MED LIST changes: +DIGOXIN125 MCG PO; +PATANOL5 ML OPHTHALMIC; +VITAMIN D3400 UNIT PO; +XANAX 1 MG TABLE1 MG PO
== END ==
LOC: M.LAB 12:05
DX: I42.0 Dilated cardiomyopathy (principal); I48.1 Persistent atrial fibrillation; E03.8 Other specified hypothyroidism

== ENCOUNTER → 2019-04-02 | Outpatient (CLI) | payer MEDICARE ==
[2019-04-02] VITALS (8 sets, daily range): BP systolic 120–145; BP diastolic 58–86
[~2019-04-02] MED LIST changes: +GLYCOLAX119 GM PO; +IBU600 MG PO; +PRAVACHOL20 MG PO
--- NOTE | ~2019-04-02 | CARD ---
[address] [address] CARDIAC CATH REPORT Name: MIKE BEST Room: [facility]#: [id number] Admission: 04/02/19 Attend Phys: Josue Mccormick MD Discharge: Date of : 39 Report #: [id number] THIS REPORT FOR: //name// CC: Josue Kaufmankatina DATE OF SERVICE: 04/02/2019 OUTPATIENT ELECTIVE CARDIOVERSION INDICATION: Atrial fibrillation. The patient has a history of paroxysmal atrial fibrillation and outpatient treatment with Xarelto for more than 30 days, which was continued through today. She was pretreated with antiarrhythmic therapy as an outpatient. CONSENT: The risks and benefits of the procedure described to the patient in lay terms. The patient elects to proceed. Heart rate, oxygenation, blood pressure, respiratory rate and usual hemodynamic monitoring were performed. After informed consent, the patient was sedated with IV Versed and fentanyl. Please see record for dosing. The patient achieved an adequate level of sedation and she was successfully cardioverted with 200 joules, synchronized, biphasic from atrial fibrillation with heart rates in the 110 range to sinus rhythm with heart rate in the 70s. IMPRESSION: 1. Paroxysmal atrial fibrillation. 2. Successful direct current cardioversion. By: 1313 1502Marco Brianna Mccormick MD, FACC /nt
[2019-04-02 09:52] LABS: HEMATOCRIT 39.1 % (37.0-47.0); MCH 30.4 pg (26.0-34.0); MCHC 33.2 g/dL (28.0-37.0); MCV 91.5 fL (80.0-100.0); MPV 8.4 fl. (7.2-11.1); RBC 4.27 mil/uL (4.20-5.00); RDW-CV 14.9 % (10.5-14.5); WBC 7.8 thou/uL (4.0-11.0)
[2019-04-02 10:03] LABS: CALCIUM 9.6 mg/dL (8.5-10.1); CREATININE 0.9 mg/dL (0.6-1.3); POTASSIUM 3.7 mmol/L (3.5-5.1)
[2019-04-02 10:08] LABS: ALBUMIN 3.6 g/dL (3.4-5.0); TOTAL BILIRUBIN 0.4 mg/dL (<0.1-1.0); TOTAL PROTEIN 7.6 g/dL (6.4-8.2)
[2019-04-02 10:29] LABS: APTT 37.9 Seconds (25.0-31.3)
[2019-04-02 10:32] LABS: INR 1.1; PROTIME 11.2 Seconds (9.20-11.50)
--- NOTE | 2019-04-02 11:39 | EKG ---
[place] [address] ELECTROCARDIOGRAM REPORT Name: MIKE BEST Room: [facility]#: [id number] Admission: 04/02/19 Attend Phys: Josue Mccormick MD Discharge: Date of : 39 Report #: [id number] THIS REPORT FOR: //name// [facility] Test Date: 2019-04-02 Test Time: 10:15:13 Pat Name: MIKE BEST Department: Room: Gender: F Transit Proof Machine Operator: : 1935 Requested By: Josue Mccormick Order Number: [id number] Reading MD: Josue Mccormick Measurements Intervals [place] Rate: 85 P: [place]: QRS: 21 QRSD: 95 T: QT: 337 QTc: 401 Interpretive Statements Atrial fibrillation Ventricular premature complex Nonspecific repol abnormality, diffuse leads Compared to ECG 05/07/2018 20:21:02 Ventricular premature complex(es) now present Possible ischemia no longer present Electronically Signed On 04-02-2019 11:39:15 CDT by Josue Mccormick [email or web address] <ELECTRONICALLY SIGNED> By: Josue Mccormick MD, [facility] 04/02/19 1139 1015 1015 Josue Mccormick MD, [facility] /EPI
== END | disposition home or self-care (01) ==
LOC: M.CL 09:16
PROVIDERS: Internal Medicine Cardiovascular Disease
DX: I48.0 Paroxysmal atrial fibrillation (principal); I10 Essential (primary) hypertension; F41.9 Anxiety disorder, unspecified; Z85.3 Personal history of malignant neoplasm of breast; Z79.899 Other long term (current) drug therapy; Z98.890 Other specified postprocedural states; Z79.01 Long term (current) use of anticoagulants; Z91.040 Latex allergy status; Z88.8 Allergy status to other drugs, medicaments and biological substances

== ENCOUNTER 2019-04-04 12:14 | Emergency (ER) | payer MEDICARE ==
[~2019-04-04] VITALS: Ht 165.1 cm; Wt 102.1 kg
[~2019-04-04 12:14] MED LIST changes: -IBU600 MG PO
[2019-04-04 12:39] LABS: ABSOLUTE BASOPHILS 0.1 thou/uL (0.0-0.2); ABSOLUTE EOSINOPHILS 0.2 thou/uL (0.0-0.7); ABSOLUTE LYMPHOCYTES 1.4 thou/uL (0.8-5.3); ABSOLUTE MONOCYTES 0.9 thou/uL (0.0-1.2); ABSOLUTE NEUTROPHILS 7.5 thou/uL (1.6-8.1); BASOPHILS 0.5 %; EOSINOPHILS 1.6 %; HEMATOCRIT 34.6 % (37.0-47.0); HEMOGLOBIN 11.8 gm/dL (12.0-15.0); MCH 31.3 pg (26.0-34.0); MCHC 34.1 g/dL (28.0-37.0); MCV 91.7 fL (80.0-100.0); MONOCYTES 8.6 %; MPV 8.4 fl. (7.2-11.1); NUCLEATED RBCS 0 /100WBC; PLATELET COUNT* 191 thou/uL (150-400); POLYS 75.3 %; RBC 3.77 mil/uL (4.20-5.00); RDW-CV 14.4 % (10.5-14.5)
[2019-04-04 12:47] LABS: ANION GAP 8 mmol/L (7-16); BUN 16 mg/dL (7-18); CALCIUM 9.2 mg/dL (8.5-10.1); CHLORIDE 99 mmol/L (98-107); CO2 32 mmol/L (21-32); CREATININE 0.9 mg/dL (0.6-1.3); GLUCOSE 127 mg/dL (70-99); POTASSIUM 3.5 mmol/L (3.5-5.1); SODIUM 139 mmol/L (136-145)
[2019-04-04 12:49] LABS: INR 1.1; PROTIME 10.8 Seconds (9.20-11.50)
[2019-04-04 12:58] LABS: ALBUMIN 3.3 g/dL (3.4-5.0); ALKALINE PHOSPHATASE 91 U/L (46-116); LIPASE 69 U/L (73-393); NT-PRO BRAIN NAT PEPTIDE 719 pg/mL (<300); SGOT 14 U/L (15-37); SGPT 19 U/L (30-65); TOTAL BILIRUBIN 0.3 mg/dL (<0.1-1.0); TROPONIN-I LEVEL <0.06 ng/mL (<0.06)
--- NOTE | 2019-04-04 14:31 | EKG ---
[place] [address] ELECTROCARDIOGRAM REPORT Name: MIKE BEST Room: [facility]#: [id number] Admission: 04/04/19 Attend Phys: Discharge: Date of : 39 Report #: [id number] THIS REPORT FOR: //name// [facility] ED Test Date: 2019-04-04 Test Time: 12:19:50 Pat Name: MIKE BEST Department: Room: Gender: F Early Childhood Specialist: : 1935 Requested By: Kyile Deal Order Number: [id number] MD: Andrew Hyatt Measurements Intervals [place] Rate: 82 P: 25 [place]: 305 QRS: 25 QRSD: 93 T: 48 QT: 397 QTc: 464 Interpretive Statements Sinus rhythm Prolonged [place] interval Nonspecific T abnormalities, lateral leads Compared to ECG 04/02/2019 10:15:13 First degree AV block now present Ventricular premature complex(es) no longer present Electronically Signed On 04-04-2019 14:31:28 CDT by Andrew Hyatt [email or web address] <ELECTRONICALLY SIGNED> By: Andrew Hyatt MD, [facility] 04/04/19 1431 1219 1219 Andrew Hyatt MD, [facility] /EPI
[2019-04-04] MEDS ORDERED: IBU600 MG PO (14:52)
[2019-04-04 15:14] VITALS: BP 134/67
== END 2019-04-04 15:16 | disposition home or self-care (01) ==
LOC: M.ERS 12:14
PROVIDERS: Personal Emergency Response Attendant
DX: I31.9 Disease of pericardium, unspecified (principal); M19.90 Unspecified osteoarthritis, unspecified site; M10.9 Gout, unspecified; Z88.6 Allergy status to analgesic agent; Z88.8 Allergy status to other drugs, medicaments and biological substances; Z91.048 Other nonmedicinal substance allergy status; Z91.040 Latex allergy status; Z88.5 Allergy status to narcotic agent; Z85.3 Personal history of malignant neoplasm of breast; Z90.11 Acquired absence of right breast and nipple; Z87.442 Personal history of urinary calculi; Z90.49 Acquired absence of other specified parts of digestive tract; Z96.652 Presence of left artificial knee joint

== ENCOUNTER 2019-10-14 11:25 | Inpatient (IN) | payer MEDICARE ==
[~2019-10-14] VITALS: Ht 165.1 cm; Wt 113.4 kg
[~2019-10-14 11:25] MED LIST changes: +IBU600 MG PO
[2019-10-14 11:34] VITALS: BP 169/86
[2019-10-14 13:08] LABS: ABSOLUTE BASOPHILS 0.1 thou/uL (0.0-0.2); ABSOLUTE EOSINOPHILS 0.1 thou/uL (0.0-0.7); ABSOLUTE LYMPHOCYTES 1.3 thou/uL (0.8-5.3); ABSOLUTE MONOCYTES 0.5 thou/uL (0.0-1.2); ABSOLUTE NEUTROPHILS 5.7 thou/uL (1.6-8.1); BASOPHILS 1.1 %; EOSINOPHILS 1.6 %; HEMATOCRIT 34.6 % (37.0-47.0); HEMOGLOBIN 11.8 gm/dL (12.0-15.0); LYMPHOCYTES 17.2 %; MCH 32.3 pg (26.0-34.0); MCHC 34.1 g/dL (28.0-37.0); MCV 94.6 fL (80.0-100.0); MPV 7.7 fl. (7.2-11.1); NUCLEATED RBCS 0 /100WBC; PLATELET COUNT* 197 thou/uL (150-400); POLYS 73.1 %; RBC 3.66 mil/uL (4.20-5.00); RDW-CV 15.1 % (10.5-14.5); WBC 7.8 thou/uL (4.0-11.0)
[2019-10-14 13:20] LABS: INR 1.1; PROTIME 11.3 Seconds (9.20-11.50)
[2019-10-14 13:26] LABS: CALCIUM 9.9 mg/dL (8.5-10.1); CREATININE 0.9 mg/dL (0.6-1.3); POTASSIUM 4.3 mmol/L (3.5-5.1)
[2019-10-14 13:36] LABS: ALBUMIN 3.6 g/dL (3.4-5.0); TOTAL BILIRUBIN 0.3 mg/dL (<0.1-1.0); TOTAL PROTEIN 7.1 g/dL (6.4-8.2)
[2019-10-14 14:20] LABS: INFLUENZA A ANTIGEN Negative (Negative); INFLUENZA B ANTIGEN Negative (Negative)
[2019-10-14 20:40] VITALS: BP 125/71
[2019-10-14 20:45] VITALS: BP 126/76
[2019-10-15] VITALS: BP 129/71
[2019-10-15 04:00] VITALS: BP 116/71
[2019-10-15 04:36] LABS: ABSOLUTE EOSINOPHILS 0.2 thou/uL (0.0-0.7); ABSOLUTE LYMPHOCYTES 1.4 thou/uL (0.8-5.3); ABSOLUTE MONOCYTES 0.6 thou/uL (0.0-1.2); ABSOLUTE NEUTROPHILS 4.4 thou/uL (1.6-8.1); BASOPHILS 0.5 %; HEMOGLOBIN 11.8 gm/dL (12.0-15.0); LYMPHOCYTES 21.7 %; MCH 32.1 pg (26.0-34.0); MCHC 33.7 g/dL (28.0-37.0); MCV 95.4 fL (80.0-100.0); MONOCYTES 8.4 %; NUCLEATED RBCS 0 /100WBC; PLATELET COUNT* 196 thou/uL (150-400); POLYS 66.4 %; RBC 3.66 mil/uL (4.20-5.00); RDW-CV 15.2 % (10.5-14.5); WBC 6.7 thou/uL (4.0-11.0)
--- NOTE | 2019-10-15 04:42 | NUR ---
PT RECIEVED FROM ED IN ROOM 223. ALERT AND ORIENTED X4. C/O PAIN, MEDICATION GIVEN PER EMAR. SAT MAINTAINED IN O2. CALL LIGHT WITHIN REACH AND BED IN LOW POSITION. HOURLY ROUNDING DONE FOR PT SAFETY.
[2019-10-15 04:57] LABS: ALBUMIN 3.4 g/dL (3.4-5.0); CALCIUM 9.6 mg/dL (8.5-10.1); POTASSIUM 3.7 mmol/L (3.5-5.1); TOTAL BILIRUBIN 0.4 mg/dL (<0.1-1.0)
[2019-10-15 08:00] VITALS: BP 128/83
--- NOTE | 2019-10-15 10:01 | NUR ---
Pt is A&O. Resides at home with her dtr and AMY. Pt is independent with ADLs, dtr completes IADLs. Pt uses a cane for mobility. No home o2. No hx of HH or SNF. Goal is home at [place], no needs anticipated.
[2019-10-15 13:01] VITALS: BP 125/70
--- NOTE | 2019-10-15 13:10 | EKG ---
[place] [address] ELECTROCARDIOGRAM REPORT Name: MIKE BEST Room: [address] ADM IN [facility].#: [id number] Admission: 10/14/19 Attend Phys: Shayy Lenz Discharge: Date of : 39 Report #: [id number] THIS REPORT FOR: //name// [facility] ED Test Date: 2019-10-14 Test Time: 11:36:37 Pat Name: MIKE BEST Department: Room: [facility] Gender: F Slasher Tender: : 1935 Requested By: Juan Luis Gonzalez Order Number: [id number] MD: Andrew Hyatt Measurements Intervals [place] Rate: 108 P: [place]: QRS: -16 QRSD: 173 T: 110 QT: 410 QTc: 550 Interpretive Statements Atrial fibrillation Left bundle branch block Compared to ECG 04/04/2019 12:19:50 Left bundle-branch block now present Sinus rhythm no longer present LEFT BUNDLE BRANCH BLOCK now seen Electronically Signed On 10-15-2019 13:10:13 RAIL TRANSPORTATION TABELER by Andrew Hyatt [email or web address] <ELECTRONICALLY SIGNED> By: Andrew Hyatt MD, FACC 10/15/19 1310 1136 1136 Andrew Hyatt MD, [facility] /EPI
[2019-10-15 18:17] VITALS: BP 117/67
--- NOTE | 2019-10-15 18:40 | NUR ---
PATIENT RESTING IN BED. UP WITH STANDBY ASSISTANCE AND HIGH FALL RISK. VSS. SHORTNESSOF BREATH WITH ACTIVITY. 3L PER NASAL CANULA. HOURLY RONDING COMPLETED FOR PATINET SAFETY.
[2019-10-15 20:00] VITALS: BP 107/59
[2019-10-16] VITALS: BP 99/60
[2019-10-16 03:46] LABS: ABSOLUTE BASOPHILS 0.1 thou/uL (0.0-0.2); ABSOLUTE EOSINOPHILS 0.3 thou/uL (0.0-0.7); ABSOLUTE LYMPHOCYTES 1.4 thou/uL (0.8-5.3); ABSOLUTE MONOCYTES 0.6 thou/uL (0.0-1.2); ABSOLUTE NEUTROPHILS 3.8 thou/uL (1.6-8.1); BASOPHILS 0.9 %; EOSINOPHILS 4.1 %; HEMATOCRIT 32.9 % (37.0-47.0); HEMOGLOBIN 11.3 gm/dL (12.0-15.0); LYMPHOCYTES 22.5 %; MCH 32.7 pg (26.0-34.0); MCHC 34.3 g/dL (28.0-37.0); MCV 95.3 fL (80.0-100.0); MONOCYTES 10.2 %; MPV 8.2 fl. (7.2-11.1); NUCLEATED RBCS 0 /100WBC; PLATELET COUNT* 199 thou/uL (150-400); POLYS 62.3 %; RBC 3.45 mil/uL (4.20-5.00); WBC 6.1 thou/uL (4.0-11.0)
[2019-10-16 03:54] LABS: ALBUMIN 3.2 g/dL (3.4-5.0); CREATININE 1.3 mg/dL (0.6-1.3); POTASSIUM 3.8 mmol/L (3.5-5.1); TOTAL BILIRUBIN 0.2 mg/dL (<0.1-1.0); TOTAL PROTEIN 6.6 g/dL (6.4-8.2)
[2019-10-16 04:00] VITALS: BP 117/63
--- NOTE | 2019-10-16 04:32 | NUR ---
PT RESTING COMFORTABLE IN BED. ONLY REQUIRED ONE DOSE OF PAIN MEDS DURING SHIFT SO FAR. PT REMAINS AFIB ON MONITOR. ON 2L NC.
[2019-10-16 07:36] VITALS: BP 122/63
--- NOTE | 2019-10-16 09:10 | EKG ---
[place] [address] ELECTROCARDIOGRAM REPORT Name: MIKE BEST Room: [address] ADM IN [facility].#: [id number] Admission: 10/14/19 Attend Phys: Shayy Lenz Discharge: Date of : 39 Report #: [id number] THIS REPORT FOR: //name// [facility] Test Date: 2019-10-16 Test Time: 08:38:31 Pat Name: MIKE BEST Department: Room: [address] Gender: F Senior Capital Markets Specialist: LILIAN : 1935 Requested By: Andrew Hyatt Order Number: [id number] MD: Dandre Darden Measurements Intervals [place] Rate: 91 P: [place]: QRS: 1 QRSD: 175 T: 164 QT: 454 QTc: 559 Interpretive Statements Atrial fibrillation Left bundle branch block Compared to ECG 10/14/2019 11:36:37 No significant changes Electronically Signed On 10-16-2019 9:10:05 OPTICS ENGINEER by Dandre Darden [email or web address] <ELECTRONICALLY SIGNED> By: Dandre Darden MD, [facility] 10/16/1910 7 7 Dandre Darden MD, FAC /EPI
[2019-10-16 12:00] VITALS: BP 105/58
[2019-10-16 16:00] VITALS: BP 118/56
--- NOTE | 2019-10-16 17:15 | NUR ---
PATINET RESTING IN BED. UP WITH STANDBY ASSISTANCE AND CANE USAGE. AOX4 BUT FORGETFUL AT TIMES. AFIB WITH FREQUEMNT PVC AND BBB. HOURLY ROUNDING COMPLETED FOR PATINET SAFETY.
[2019-10-16 20:00] VITALS: BP 119/56
[2019-10-17] VITALS: BP 101/60
[2019-10-17 04:00] VITALS: BP 127/72
[2019-10-17 05:01] LABS: ABSOLUTE EOSINOPHILS 0.2 thou/uL (0.0-0.7); ABSOLUTE LYMPHOCYTES 1.1 thou/uL (0.8-5.3); ABSOLUTE MONOCYTES 0.7 thou/uL (0.0-1.2); ABSOLUTE NEUTROPHILS 3.8 thou/uL (1.6-8.1); BASOPHILS 0.7 %; EOSINOPHILS 3.8 %; HEMATOCRIT 33.1 % (37.0-47.0); HEMOGLOBIN 11.2 gm/dL (12.0-15.0); LYMPHOCYTES 19.1 %; MCH 32.3 pg (26.0-34.0); MCHC 33.9 g/dL (28.0-37.0); MCV 95.5 fL (80.0-100.0); MONOCYTES 11.2 %; MPV 8.4 fl. (7.2-11.1); NUCLEATED RBCS 0 /100WBC; PLATELET COUNT* 198 thou/uL (150-400); POLYS 65.2 %; RBC 3.47 mil/uL (4.20-5.00); RDW-CV 14.9 % (10.5-14.5); WBC 5.9 thou/uL (4.0-11.0)
[2019-10-17 05:27] LABS: ALBUMIN 3.4 g/dL (3.4-5.0); CREATININE 1.4 mg/dL (0.6-1.3); POTASSIUM 3.8 mmol/L (3.5-5.1); TOTAL BILIRUBIN 0.3 mg/dL (<0.1-1.0)
--- NOTE | 2019-10-17 07:00 | NUR ---
PROGRESSING TOWARDS GOALS, RESTING QUIETLY WITH EYES CLOSED OFF AND ON DURING NOC, OXYGEN 2L PER NC, OXYCODONE 5MG PO GIVEN X2 PER REQUEST AND C/O RIGHT HIP PAIN, OXYCODONE EFFECTIVE FOR PAIN MANAGEMENT PER PT VERBALIZATION. LOW GRADE TEMP 99.6 ORAL, NEW ORDER FOR [facility] PT REPORTS HEATING PAD HELPFUL FOR PAIN MANAGEMENT AT HOME, AFIB BBB HR HIGH 40'S TO 70'S TRACING LEPIDOPTERIST, IV SALINE LOCKED, AWAKE, ALERT, AND CONVERSATIVE THIS AM, CALL LIGHT REMAINS IN REACH.
[2019-10-17 08:00] VITALS: BP 147/81
[2019-10-17 11:30] VITALS: BP 120/60
--- NOTE | 2019-10-17 12:16 | NUR ---
CONTINUE TO FOLLOW, PT STATES STILL NOT FEELING BACK TO BASELINE, SLEEPY AND REMAINS ON O2. SHE LIVS [place] DTR AND AMY BUT THEY WORK DURING THE DAY AND PT IS ALONE. SHE USES CANE BUT NOT O2 AND REMAINS ON O2 AT THIS TIME. DISCUSSED WITH AND REQUESTED THERAPY JANETH
--- NOTE | 2019-10-17 12:44 | CON ---
[address] [address] CONSULTATION Name: MIKE BEST Room: [address] IN .#: [id number] Admission: 10/14/19 Attend Phys: Shayy Lenz Discharge: Date of : 39 Report #: [id number] THIS REPORT FOR: //name// CC: Marissa Oscar DATE OF SERVICE: 10/15/2019 CARDIOLOGY CONSULTATION HISTORY OF PRESENT ILLNESS: The patient is an 83-year-old single white female who I was asked to see in the hospital today after she complained of being short of breath. The patient has an extensive past medical history. She has a history of paroxysmal atrial fibrillation and has been cardioverted here at [facility] in the past. She previously was followed by Dr. Mccormick. She has been chronically anticoagulated with Xarelto. She does have a history of chest pain. She apparently had a stress PET scan at [facility] in [facility] last spring that showed no evidence of ischemia with normal ejection fraction. She has no previous history of heart disease. She last saw Dr. Mccormick in March. She is not very active because of her large size. She is 5 feet 5 inches and weighs 242 pounds. She states that last few days, she has been short of breath with a dry cough. She also noticed heaviness in her chest, it was hard to breathe. There is no radiation of the pain. She has been sweaty. Denies any palpitations, syncope, bleeding. She was admitted yesterday for further evaluation and treatment. PAST MEDICAL HISTORY: Otherwise, she has a history of breast cancer with previous bilateral mastectomy. She had radiation therapy and chemotherapy. She has had a hernia repair. She currently needs a hip surgery. She has a history of hypertension, diabetes. MEDICATIONS: Consist of albuterol inhaler, allopurinol, diltiazem, flecainide, Flovent, Lasix, Neurontin, Synthroid, Pravachol, Xarelto. ALLERGIES: SHE HAS PREVIOUS INTOLERANCE TO MORPHINE. FAMILY HISTORY: Her father had a heart attack. SOCIAL HISTORY: She is , lives with daughter in [place]. She also has a home in [place]. Quit smoking years ago, rarely drinks alcohol. REVIEW OF SYSTEMS: She had no history of stroke. She has COPD. She has had hemorrhoids in the past, kidney stones, bilateral breast cancer. No psychiatric illness. No chronic skin condition. PHYSICAL EXAMINATION: [place] [address] CONSULTATION Name: MIKE BEST Room: [address]#: [id number] Admission: 10/14/19 Attend Phys: Shayy Lenz Discharge: Date of : 39 Report #: [id number] GENERAL: Revealed an elderly obese white female, lying in bed. She appeared in no acute distress. VITAL SIGNS: Blood pressure is 140/80, pulse is 90. She is afebrile. HEENT: She was anicteric. Conjunctivae pink. Mucous membranes moist. NECK: Veins cannot be assessed due to obesity. CHEST: Clear to auscultation. Decreased breath sounds at the bases. CARDIOVASCULAR: Regular rate and rhythm. ABDOMEN: Obese. EXTREMITIES: Had no pitting edema. SKIN: Cool and dry. NEUROLOGIC: Nonfocal. RADIOLOGICAL DATA: Her ECG on admission showed atrial fibrillation, controlled ventricular response rate. There was a left bundle-branch block. Her echocardiogram in 2018 showed ejection fraction of 50%, left atrial enlargement. Her workup in the Emergency Room yesterday included a chest x-ray that showed cardiomegaly, hyperinflated lung sweet. She actually had a CT scan of the abdomen that showed diverticular disease. Small lung nodule. LABORATORY WORK: Sodium 140, potassium 3.7, creatinine 1.0. Liver function studies were normal. BNP 2269. Previous TSH is 15. White blood cell count 6.7, hemoglobin 11.8. IMPRESSION AND RECOMMENDATIONS: 1. Atrial fibrillation. Previous cardioversion. Now appears to be back in atrial fibrillation despite flecainide. I would discontinue flecainide and aim for rate control only. I would continue anticoagulation with Xarelto, although because of normal kidney function. I would increase the dose to 20 mg a day. 2. Chronic obstructive pulmonary disease. 3. Obesity. 4. History of breast cancer. 5. Hyperlipidemia. The patient is on a statin drug. 6. Bilateral breast cancer. Previous chemotherapy and radiation therapy. 7. Chest pressure. Atypical for angina. Previous stress PET scan at [facility] last year showed no significant ischemia. <ELECTRONICALLY SIGNED> By: Andrew Hyatt MD, FACC 10/17/19 1244 [id number] Hyatt MD, FACC /nt
--- NOTE | 2019-10-17 13:31 | NUR ---
RE: CHF Medication Teaching Saw patient today to discuss CHF medications. Discussed all pertinent meds potential side effects, how and when to take, how they work. Patient states they have no questions at this time. Pharmacy is available for further needs, thank you.
--- NOTE | 2019-10-17 16:32 | 2DMMODE ---
[place] [address] 2 D/M-MODE ECHOCARDIOGRAM Name: MIKE BEST Room: [address] ADM IN .R.#: [id number] Admission: 10/14/19 Attend Phys: Dwayne Oscar Discharge: Date of : 39 Date of Service: 10/17/19 1632 Report #: [id number] THIS REPORT FOR: //name// APPROVED REPORT Study performed: 10/17/2019 15:12:55 EXAM: Comprehensive 2D, Doppler, and color-flow Echocardiogram Patient Location: Bedside BSA: 2.17 HR: 50 bpm BP: 120/60 mmHg Other Information Study Quality: Fair Indications Congestive Heart Failure Dyspnea 2D Dimensions IVSd: 13.28 (7-11mm) LVOT Diam: 17.41 (18-24mm) LVDd: 51.30 mm PWd: 12.22 (7-11mm) Ascending Ao: 25.63 (22-36mm) LVDs: 41.83 (25-40mm) Aortic Root: 28.76 mm Volumes Left Atrial Volume (Systole) LA ESV Index: 33.40 mL/m2 Aortic Valve AoV Peak Frederic.: 1.69 m/s AO Peak Gr.: 11.38 mmHg LVOT Max P.21 mmHg AO Mean Gr.: 6.43 mmHg LVOT Mean P.15 mmHg LVOT Max V: 0.74 m/s AO V2 VTI: 29.93 cm LVOT Mean V: 0.50 m/s PIERRE (VTI): 1.11 cm2 LVOT V1 VTI: 13.98 cm AI Gove: 1.03 m/s2 AI PHT: 974.10 ms Mitral Valve E/A Ratio: 3.12 MV Decel. Time: 227.91 [place] [address] 2 D/M-MODE ECHOCARDIOGRAM Name: CHERYL BESTRUPAL SIMON Room: [address] IN [facility]#: [id number] Admission: 10/14/19 Attend Phys: Dwayne Oscar Discharge: Date of : 39 Date of Service: 10/17/19 1632 Report #: [id number] MV E Max Frederic.: 1.24 m/s MV PHT: 66.09 ms MVA (PHT): 3.33 cm2 TDI E/Lateral E': 11.27 E/Medial E': 9.54 Medial E' Frederic.: 0.13 m/s Lateral E' Frederic.: 0.11 m/s Pulmonary Valve PV Peak Frederic.: 1.02 m/s PV Peak Gr.: 4.16 mmHg Tricuspid Valve RAP Estimate: 20.00 mmHg TR Peak Gr.: 41.65 mmHg RVSP: 61.65 mmHg PA Pressure: 61.65 mmHg Left Ventricle The left ventricle is normal size. Mild concentric left ventricular hypertrophy. The left ventricular systolic function is normal. LVEF is 50-55%. This study is not technically sufficient to allow evaluation of the LV diastolic function due to atrial fibrillation. Right Ventricle Right ventricle is mildly dilated. The right ventricular systolic function is normal. Atria Left atrium is mildly dilated. The right atrium size is normal. Aortic Valve The Aortic valve is sclerotic. Trace to mild aortic regurgitation. Mild aortic stenosis. Mitral Valve There is mitral annular calcification. Mild mitral regurgitation. No evidence of mitral valve stenosis. Tricuspid Valve The tricuspid valve is normal in structure. Mild tricuspid regurgitation. The RVSP is 35-40 mmHg. Pulmonic Valve The pulmonary valve is normal in structure. [place] [address] 2 D/M-MODE ECHOCARDIOGRAM Name: MIKE BEST Room: [address]#: [id number] Admission: 10/14/19 Attend Phys: Dwayne Oscar Discharge: Date of : 39 Date of Service: 10/17/19 1632 Report #: [id number] regurgitation. Great Vessels The aortic root is normal in size. IVC is dilated. Pericardium There is no pericardial effusion. <Conclusion> The left ventricle is normal size. Mild concentric left ventricular hypertrophy. The left ventricular systolic function is normal. LVEF is 50-55%. This study is not technically sufficient to allow evaluation of the LV diastolic function due to atrial fibrillation. Left atrium is mildly dilated. Right ventricle is mildly dilated. Trace to mild aortic regurgitation. Mild aortic stenosis. Mild mitral regurgitation. Mild tricuspid regurgitation. The RVSP is 35-40 mmHg. Mild pulmonic regurgitation. IVC is dilated. <ELECTRONICALLY SIGNED> By: Dandre Darden MD, FACC 10/17/19 1632 [id number] Dandre Darden MD, FACC /INF
[2019-10-17 17:15] VITALS: BP 134/71
--- NOTE | 2019-10-17 18:40 | NUR ---
ASSUMED PT CARE AT 07. ASSESSMENT COMPLETED CHARTED. ABLE TO MAKE NEEDS KNOWN. UP WITH 1 ASSIST. C/O PAIN IN HIP, GAVE PRN PAIN MEDICATION PER EMAR. SITTING UP IN BED AT THIS TIME. 2L O2. IV CAME OUT AFTER GOING TO THE BATHROOM EARLIER TODAY. NOTIFIED WILL CONTINUE TO MONITOR.
[2019-10-17 19:45] VITALS: BP 130/60
[2019-10-18] VITALS: BP 108/63
--- NOTE | 2019-10-18 01:57 | NUR ---
ASSUMED CARE OF PT AT 1900. PT IS ALERT AND ORIENTED. VSS. PERRLA. PT IS ON 2 LITERS OF O2. PT IS IN A FIB ON THE TELEMETRY. PT IS RESTING COMFORTABLY IN BED. RESPIRATIONS ARE EVEN AND NONLABORED. WILL CONTINUE TO MONITOR PT.
[2019-10-18 08:00] VITALS: BP 126/63
[2019-10-18 13:15] VITALS: BP 124/89
--- NOTE | 2019-10-18 14:24 | NUR ---
CONTINUE TO FOLLOW, MET WITH PT. PER THERAPY, RECOMMENDATION IS FOR HH VS SNF. PT DECLINES BOTH AND WANTS TO GO HOME. STATES SHE WILL BE AT THE STORE WITH HER DTR DURING THE DAY WHILE DTR WORKS. SHE HAS A WALKER AND WANTS TO RETURN HOME. UPDATED
[2019-10-18 17:02] VITALS: BP 121/68
[2019-10-18 19:55] VITALS: BP 102/73
[2019-10-19] VITALS: BP 111/60
[2019-10-19 04:00] VITALS: BP 120/74
[2019-10-19 04:47] LABS: CALCIUM 8.8 mg/dL (8.5-10.1); CREATININE 0.9 mg/dL (0.6-1.3); MAGNESIUM 1.8 mg/dL (1.8-2.4); POTASSIUM 3.7 mmol/L (3.5-5.1)
--- NOTE | 2019-10-19 07:38 | NUR ---
PT IS ABLE TO COMMUNICATE HER NEEDS TO STAFF WITH VERY MINOR DIFFICULTY; SHE CAN BE FORGETFUL AT TIMES. CURRENT PAIN MEDICATION REGIMEN HAS BEEN ADEQUATE FOR CONTROLLING HER PAIN UP TO THIS TIME. POSSIBLE DISCHARGE TODAY OR TOMORROW. PT HAS NO IV ACCESS CURRENTLY; OK'ED BY .
[2019-10-19 08:00] VITALS: BP 142/83
[2019-10-19] MEDS ORDERED: CARDIZEM CD 30300 M1 PO (10:14)
[2019-10-19] MEDS ORDERED: SYNTHROID137 MC1 PO (10:14)
[2019-10-19] MEDS ORDERED: PERCOCET PO (10:19)
[2019-10-19 12:00] VITALS: BP 98/59
--- NOTE | 2019-10-19 18:40 | NUR ---
ASSUMED PT CARE AT 0730. ASSESSMENT COMPLETED CHARTED. ABLE TO MAKE NEEDS KNOWN. PT FORGETFUL AND HAS TO HAVE REITERATION FOR LEARNING. C/O PAIN IN HIPS AND GAVE PRN PAIN MEDICATION PER EMAR. RESTING IN BED MOST OF THE DAY. FAMILY ARRIVED AROUND 10 MINS AGO. DISCHARGE APPROVED AND REVIEWED WITH PT. IV AND HEART MONITOR REMOVED. NO COMMENTS, QUESTIONS, OR CONCERNS NOTED. UP WITH 1 ASSIST AND WALKER TO BATHROOM. PT LEFT TO [employer] AT 1840 BY WHEELCHAIR WITH GENOMICS SCIENTIST IN TOW.
== END 2019-10-19 18:40 | disposition home health service (06) | DRG 291 ==
LOC: M.ERS 11:25 → M.2W 13:52 → M.TBA-ER 13:52 → M.2W 20:45
PROVIDERS: Emergency Medicine; Internal Medicine; ADMIT Internal Medicine
DX: I13.0 Hypertensive heart and chronic kidney disease with heart failure and stage 1 through stage 4 chronic kidney disease, or unspecified chronic kidney disease (principal); I50.33 Acute on chronic diastolic (congestive) heart failure; J96.01 Acute respiratory failure with hypoxia; K92.1 Melena; Z68.41 Body mass index [BMI] 40.0-44.9, adult; K57.92 Diverticulitis of intestine, part unspecified, without perforation or abscess without bleeding; J44.0 Chronic obstructive pulmonary disease with (acute) lower respiratory infection; I42.8 Other cardiomyopathies; I48.0 Paroxysmal atrial fibrillation; M19.90 Unspecified osteoarthritis, unspecified site; M10.9 Gout, unspecified; E78.5 Hyperlipidemia, unspecified; J20.9 Acute bronchitis, unspecified; E66.01 Morbid (severe) obesity due to excess calories; K52.9 Noninfective gastroenteritis and colitis, unspecified; E03.9 Hypothyroidism, unspecified; E11.22 Type 2 diabetes mellitus with diabetic chronic kidney disease; K59.00 Constipation, unspecified; N18.3 Chronic kidney disease, stage 3 (moderate); R91.8 Other nonspecific abnormal finding of lung field; Z96.653 Presence of artificial knee joint, bilateral; Z85.3 Personal history of malignant neoplasm of breast; Z90.49 Acquired absence of other specified parts of digestive tract; Z87.442 Personal history of urinary calculi; Z90.13 Acquired absence of bilateral breasts and nipples; Z87.891 Personal history of nicotine dependence; Z72.89 Other problems related to lifestyle; Z79.899 Other long term (current) drug therapy; Z88.6 Allergy status to analgesic agent; Z88.1 Allergy status to other antibiotic agents; Z91.040 Latex allergy status; Z88.5 Allergy status to narcotic agent; Z88.8 Allergy status to other drugs, medicaments and biological substances; Z91.048 Other nonmedicinal substance allergy status; Z96.611 Presence of right artificial shoulder joint; Z79.01 Long term (current) use of anticoagulants; Z92.3 Personal history of irradiation; Z92.21 Personal history of antineoplastic chemotherapy; Z82.49 Family history of ischemic heart disease and other diseases of the circulatory system